=== PATIENT | female | born 2000 | race Caucasian/White ===

== ENCOUNTER 2021-01-29 21:01 | Emergency (ER) | payer SELFPAY ==
[~2021-01-29] VITALS: Ht 160 cm; Wt 56.4 kg
[2021-01-30 00:15] VITALS: BP 110/60; PULSE 87; TEMP 98.7
== END 2021-01-30 00:15 | disposition home or self-care (01) ==
LOC: COL.ER 21:01
DX: F10.10 Alcohol abuse, uncomplicated (principal)